=== PATIENT | male | born 1995 | race African-American/Black ===

== ENCOUNTER 2017-01-24 14:28 | Emergency (ER) | payer OTHER ==
--- NOTE | ~2017-01-24 | CR63 ---
[facility] A Service of [facility] & [facility] RADIOLOGY TEXT RESULTS PATIENT: LEN SNEED LOCATION: SED : [birth year] UNIT #: [id number] AGE: [address]: AILYN BERRY SEX: M ORDER DR: [id number] [place] [id number] E MR#: [id number] Acc #: [id number] NAME: LEN SNEED : 1995 SEX: M STUDY DATE/TIME: 01/24/2017 15:15 UNIT: SED ROOM: STUDY DESCRIPTION: CR Chest 2 View Attending Physician: (Les) Ailyn Berry Ordering Physician: Tu) Ailyn Berry Primary Care Physician: No Primary Care Physician MEDICAL IMAGING REPORT This report is preliminary unless electronic signature is present. EXAM Two-view chest. INDICATIONS Cough for 3 days. Body aches. FINDINGS PA and lateral views of the chest compared to 12/18/2015. Heart and mediastinal contours are normal. Lungs are clear. IMPRESSION Negative chest radiograph. Dictated by... Chago Miranda M.D. THIS IS AN ELECTRONICALLY VERIFIED REPORT Chago Miranda M.D. at 01/25/2017 5:14 PM Shawna TD: 01/24/2017 20:21 JOB #: [id number] MEDICAL IMAGING REPORT Page 1 of 1
[~2017-01-24 14:28] MED LIST: ALBUTEROL17 GM INH; ALPRAZOLAM PO; FLUCONAZOLE150 M1 PO; FOCALIN XR PO; IMMODIUM1 MG/5 ML PO; KEFLEX500 M1 PO; LEXAPRO PO; LOTRIMIN 1% CR30 GM EXT; NO MEDICATIONS; PATANOL5 ML OP; PHENERGAN PO; SEROQUEL PO; ZOFRAN8 MG PO; [UNRECOGNIZED DRUG - OTHER] PO
== END 2017-01-24 16:13 | disposition home or self-care (01) ==
LOC: SED 14:28
DX: J44.1 Chronic obstructive pulmonary disease with (acute) exacerbation (principal); J06.9 Acute upper respiratory infection, unspecified; R03.0 Elevated blood-pressure reading, without diagnosis of hypertension; F17.210 Nicotine dependence, cigarettes, uncomplicated; Z88.0 Allergy status to penicillin
CPT/HCPCS: 71020; 94640; 99283